=== PATIENT | male | born 1975 | race Caucasian/White ===

== ENCOUNTER 2024-10-01 13:04 | Outpatient (CLI) | payer OTHER | END 2024-10-01 13:05 | disposition home or self-care (01) | LOC: CSHULT 13:04 | PROVIDERS: ATTEND Family Medicine | DX: R22.1 Localized swelling, mass and lump, neck (principal); E03.9 Hypothyroidism, unspecified; E04.1 Nontoxic single thyroid nodule | CPT/HCPCS: 76536 ==

== ENCOUNTER 2025-05-12 07:38 | Day surgery (SDC) | payer OTHER ==
[2025-05-08 15:30] VITALS: BMI 42.2
[2025-05-12] MEDS ORDERED: Tranexamic Acid 1,000 MG/10 ML VIAL ONE (10:22)
[2025-05-12] MEDS ORDERED: Lidocaine 4% PF 5 ML AMP ONE (10:22)
[2025-05-12] MEDS ORDERED: PROPOFOL 20 ML ONE (10:22)
[2025-05-12] MEDS ORDERED: Lidocaine 1% PF 5 ML VIAL ONE (10:23)
[2025-05-12] MEDS ORDERED: AFRIN NASAL MIST 15 ML BOT ONE (10:23)
[2025-05-12] MEDS ORDERED: Ondansetron PF 4 MG/2 ML Vial ONE (10:23)
[2025-05-12] MEDS ORDERED: Rocuronium Bromide 10 MG/ML (10ML VIAL) ONE (10:23)
[2025-05-12] MEDS ORDERED: SUGAMMADEX SODIUM 200 MG/2 ML VIAL ONE (10:26)
[2025-05-12] MEDS ORDERED: PHENYLEPHRINE-NS 100 MCG/ML 10 ML SYRINGE ONE (11:07)
[2025-05-12] MEDS ORDERED: Phenylephrine 40 MG/NS 250 ML 250 ML ONE (11:17)
[2025-05-12] MEDS ORDERED: HYDROcodone/Acetaminophen 5/325 mg Tablet ONE (15:32)
== END 2025-05-12 16:35 | disposition home or self-care (01) ==
LOC: CSHSDC 07:38
PROVIDERS: ATTEND Otolaryngology
PROC: 099X8ZZ Drainage of Left Sphenoid Sinus, Via Natural or Artificial Opening Endoscopic (ICD-10-PCS; principal; 2025-05-12)
PROC: 09TV8ZZ Resection of Left Ethmoid Sinus, Via Natural or Artificial Opening Endoscopic (ICD-10-PCS; principal; 2025-05-12)
DX: J34.1 Cyst and mucocele of nose and nasal sinus (principal); J32.8 Other chronic sinusitis; J34.2 Deviated nasal septum; J30.9 Allergic rhinitis, unspecified; H53.8 Other visual disturbances; E04.1 Nontoxic single thyroid nodule; E03.9 Hypothyroidism, unspecified; E78.5 Hyperlipidemia, unspecified; K21.9 Gastro-esophageal reflux disease without esophagitis; Z79.899 Other long term (current) drug therapy
CPT/HCPCS: 88305; 88311; J0169; J1100; J2250; J2704; J3010